=== PATIENT | male | born 1960 | race Caucasian/White ===

== ENCOUNTER 2017-11-07 20:51 | Emergency (ER) | payer OTHER, BC ==
[2017-11-07 21:05] VITALS: BP 131/96
--- NOTE | 2017-11-07 21:24 | EDM.PDOC ---
ED HPI GENERAL MEDICAL PROBLEM - General Chief Complaint: Upper Extremity Injury/Pain Stated Complaint: INJURED RIGHT SHOULDER Time Seen by Provider: 11/07/17 21:14 Source of Information: Reports: Patient History Limitations: Reports: No Limitations - History of Present Illness INITIAL COMMENTS - FREE TEXT/NARRATIVE: Patient is a 57-year-old male who presents to the ED complaining of right shoulder pain. Patient states approx one hour ago while walking on ice and fell landing on his right elbow injuring his right shoulder. Since the fall he's been unable to lift his arm above the right shoulder due to worsening pain to the lateral aspect of the shoulder. There is no swelling, deformity, bruising, wounds present. No sensory/motor deficits distally. No prior injury to the affected shoulder. Denies any head, neck, and lower back pain. Right Shoulder Pain Score (Numeric/FACES): 5 - Related Data Allergies Allergy/AdvReac Type Severity Reaction Status Date / Time No Known Allergies Allergy Verified 11/07/17 20:58 Home Meds: Home Meds Aspirin [Adult Low Dose Aspirin EC] 81 mg PO DAILY 07/17/15 [History] Clopidogrel [Plavix] 75 mg PO DAILY 07/17/15 [History] Metoprolol Tartrate 25 mg PO BID 07/17/15 [History] Calcium Polycarbophil [Fibercon] 625 mg PO BID 08/28/15 [History] Past Medical History - Past Health History Medical/Surgical History: Denies Medical/Surgical History Other Cardiovascular History: no stents---states that he had a 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 Social & Family History - Tobacco Use Smoking Status *Q: Never Smoker Second Hand Smoke Exposure: No - Caffeine Use Caffeine Use: Reports: Soda - Alcohol Use Days Per Week of Alcohol Use: 0 (social, rarely) - Recreational Drug Use Recreational Drug Use: No Review of Systems - Review of Systems Review Of Systems: ROS reveals no pertinent complaints other than HPI. ED EXAM, GENERAL - Physical Exam Exam: See Below Exam Limited By: No Limitations General Appearance: Alert, WD/WN, No Apparent Distress Ears: Hearing Grossly Normal Nose: Normal Inspection Throat/Mouth: Normal Voice, No Airway Compromise Neck: Normal Inspection, Supple, Non-Tender, Full Range of Motion Respiratory/Chest: No Respiratory Distress, No Accessory Muscle Use Cardiovascular: Normal Peripheral Pulses, Regular Rate, Rhythm Peripheral Pulses: 2+: Radial (R) Back Exam: Normal Inspection, Full Range of Motion. No: Paraspinal Tenderness, Vertebral Tenderness Extremities: Normal Inspection, Non-Tender (on palpation. ), Limited Range of Motion (Patient unable to lift his arm above his head. AROM limted with abduction. PROM intact with no limitations. Empty the can test positive. ) Neurological: Alert, Oriented, CN II-XII Intact, Normal Cognition, Normal Gait, No Motor/Sensory Deficits Psychiatric: Normal Affect, Normal Mood Skin Exam: Warm, Dry, Intact, Normal Color Course - Vital Signs Last Recorded V/S: Last Vital Signs Temp 97.2 F 11/07/17 21:02 Pulse 71 11/07/17 21:02 Resp 18 11/07/17 21:02 BP 131/96 H 11/07/17 21:02 Pulse Ox 96 11/07/17 21:02 - Orders/Labs/Meds Orders: Active Orders 24 hr Category Date Time Status Shoulder Comp Rt [CR] Stat Exams 11/07/17 21:18 Ordered - Re-Assessments/Exams Free Text/Narrative Re-Assessment/Exam: Ordered x-ray of the right shoulder. x-ray of the right shoulder did not reveal any acute bony abnormalities. Will discharge patient home with instructions as documented. Presumably believe patient may have strained or partially tore his rotator cuff. Further evaluation by orthopedic surgeon will required if no improvements. Departure - Departure Time of Disposition: 22:23 Disposition: Home, Self-Care 01 Condition: Good Clinical Impression: Partial tear of rotator cuff Qualifiers: Laterality: right Qualified Code(s): M75.111 - Incomplete rotator cuff tear or rupture of right shoulder, not specified as traumatic Right shoulder strain Qualifiers: Encounter type: initial encounter Qualified Code(s): S46.911A - Strain of unspecified muscle, fascia and tendon at shoulder and upper arm level, right arm , initial encounter - Discharge Information Referrals: Capo Melgar MD [Physician] - Forms: ED Department Discharge, ED Return to Work/School Form Additional Instructions: As discussed x-ray of the right shoulder did not reveal any acute bony abnormalities. You have either strained the shoulder or possibly torn portion of the rotator cuff. Treatment at this point is symptomatic care including Tylenol and ibuprofen in alternating fashion for pain. Ice to affected area 4-6 times daily, 20 minutes in duration, do not place ice directly on the skin. Refrain from any activities that cause worsening pain. Follow-up with orthopedic surgeon in 10-14 days if no improvement noted. Return to the ED as needed for any new or worsening symptoms. - My Orders Last 24 Hours: My Active Orders 11/07/17 21:18 Shoulder Comp Rt [CR] Stat - Assessment/Plan Last 24 Hours: My Active Orders 11/07/17 21:18 Shoulder Comp Rt [CR] Stat
--- NOTE | 2017-11-09 07:53 | CR ---
Right shoulder: Three views of the right shoulder were obtained. Comparison: No prior study. Joint space narrowing is noted within the acromioclavicular joint. Glenohumeral joint is within normal limits. No acute fracture, dislocation or other bony abnormality is seen. Impression: 1. Joint space narrowing within the acromioclavicular joint. 2. Right shoulder study is otherwise unremarkable. Diagnostic code #2
== END 2017-11-07 22:35 | disposition home or self-care (01) ==
LOC: JD.ED 20:51
DX: S46.911A Strain of unspecified muscle, fascia and tendon at shoulder and upper arm level, right arm, initial encounter (principal); M75.111 Incomplete rotator cuff tear or rupture of right shoulder, not specified as traumatic; Z79.82 Long term (current) use of aspirin; Z79.899 Other long term (current) drug therapy; W19.XXXA Unspecified fall, initial encounter
CPT/HCPCS: 73030-26-RT; 73030-RT; 99283

== ENCOUNTER 2017-11-28 22:52 | Emergency (ER) | payer BC, OTHER ==
[2017-11-28 23:03] VITALS: BP 141/84
--- NOTE | 2017-11-28 23:49 | EDM.PDOC ---
ED HPI GENERAL MEDICAL PROBLEM - General Chief Complaint: ENT Problem Stated Complaint: SORE EYES Time Seen by Provider: 11/28/17 22:57 Source of Information: Reports: Patient, RN (Kylah) History Limitations: Reports: No Limitations - History of Present Illness INITIAL COMMENTS - FREE TEXT/NARRATIVE: The patient states that he had pain to his left eye on 11/23/2017, then noticed a discharge in his left eye the following day, 11/24/2017. By 11/25/2017 , it had resolved. He then had a burning sensation to his left paranasal sinus area that began on 11/24/2017, but resolved by 11/26/2017. The patient states that there has been "pinkeye" at work, and the patient is concerned that he might have pinkeye. The patient reports that he has had a left upper tooth problem, perhaps an infection, that has extended up to his left paranasal sinus, for the past 8 years. He has an appointment to be seen by his dentist this coming Thursday, 2017. No recent fever. No recent visual changes. The patient's PCP is Chantelle Larsen. - Related Data Allergies Allergy/AdvReac Type Severity Reaction Status Date / Time No Known Allergies Allergy Verified 11/07/17 20:58 Home Meds: Home Meds Aspirin [Adult Low Dose Aspirin EC] 81 mg PO DAILY 07/17/15 [History] Clopidogrel [Plavix] 75 mg PO DAILY 07/17/15 [History] Metoprolol Tartrate 25 mg PO BID 07/17/15 [History] Calcium Polycarbophil [Fibercon] 625 mg PO BID 08/28/15 [History] Past Medical History Cardiovascular History: Reports: ID Other Cardiovascular History: no stents---states that he had a 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 ID Other Neuro History: head injuries in the late . - Past Surgical History Musculoskeletal Surgical History: Reports: Carpal Tunnel Social & Family History - Tobacco Use Smoking Status *Q: Never Smoker Second Hand Smoke Exposure: No - Caffeine Use Caffeine Use: Reports: Coffee, Soda - Alcohol Use Days Per Week of Alcohol Use: 0 (social, rarely) - Recreational Drug Use Recreational Drug Use: No ED ROS GENERAL - Review of Systems Review Of Systems: ROS reveals no pertinent complaints other than HPI. ED EXAM, GENERAL - Physical Exam Exam: See Below Exam Limited By: No Limitations General Appearance: Alert, WD/WN, No Apparent Distress Eye Exam: Bilateral Eye: EOMI, Normal Inspection, PERRL Ears: Normal External Exam, Hearing Grossly Normal Nose: Normal Inspection, Normal Mucosa, No Blood Throat/Mouth: Normal Inspection, Normal Lips, Normal Gums, Normal Oropharynx, Normal Voice, No Airway Compromise, Other (Fillings noted to the upper left molars, however, no tenderness to percussion of any have this teeth, and no gingival swelling or pointing.) Head: Atraumatic, Normocephalic, Other (No facial erythema. The patient reports some numbness sensation to the left paranasal sinus area.). No: Facial Swelling , Facial Tenderness, Sinus Tenderness Neck: Normal Inspection, Full Range of Motion Course - Vital Signs Last Recorded V/S: Last Vital Signs Temp 37.1 C 11/28/17 22:58 Pulse 79 11/28/17 22:58 Resp 16 11/28/17 22:58 BP 141/84 H 11/28/17 22:58 Pulse Ox 98 11/28/17 22:58 - Re-Assessments/Exams Free Text/Narrative Re-Assessment/Exam: 11/28/17 23:42 The patient was concerned that he might have pinkeye. On examination, I see no abnormality with his eye whatsoever. He definitely does not have pinkeye. He is also complaining of some numbness/tingling to his left paranasal sinus area. No tenderness to percussion of the area, and no visible abnormality, such as swelling or erythema. Further, on his examination, I do not see any significant nasal congestion, however, I cannot rule out that a long-standing upper left dental issue may not be causing his symptoms. The patient states that he has a dental appointment this coming 12/01/2017. I recommended that he discuss his symptoms when seen. Departure - Departure Time of Disposition: 23:44 Disposition: Home, Self-Care 01 Condition: Good Clinical Impression: Discomfort of left eye - Discharge Information Referrals: Chantelle Larsen PA [Primary Care Provider] - Additional Instructions: You were seen in the emergency room for a burning sensation to your left eye 2 days ago. On examination, you do not have pinkeye. No abnormality was found, however, your left cheek numbness may be related to your long-standing upper left tooth problem. We recommend that you follow-up with your dentist at your previously scheduled appointment this coming 12/01/2017. If any other problems, please do not hesitate to return to the ER.
== END 2017-11-28 23:51 | disposition home or self-care (01) ==
LOC: JD.ED 22:52
DX: H57.12 Ocular pain, left eye (principal); Z79.82 Long term (current) use of aspirin; Z79.899 Other long term (current) drug therapy
CPT/HCPCS: 99282; 99283

== ENCOUNTER 2018-02-10 06:37 | Day surgery (SDC) | payer OTHER, BC ==
[~2018-02-10 06:37] MED LIST: EPINEPHrine 1 MG/ML SDV ONE; Lactated Ringers 1,000 ML IV SCH; Lidocaine 1%/Sod Bicarbonate in NS 8.4% 1 ML Syringe IDERM PRN; Ropivacaine 0.5% 5 MG/ML 30 ML SDV ONE; Sodium Chloride 0.9% 10 ML Syringe FLUSH PRN
[2018-02-10] MEDS ORDERED: Bupivacaine 0.25% 30 ML SDV ONE (07:16)
--- NOTE | 2018-02-10 07:25 | PCM.PREANE ---
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, was on blood thinner for a year then discontinued, still takes aspirin thought last time was a week ago, CAD, HLD) Gastrointestinal: No Symptoms Neurological: No Symptoms Other: Reports: Easy Bruising, Depression - Physical Assessment NPO Status Date: 02/09/18 NPO Status Time: 22:00 O2 Sat by Pulse Oximetry: 96 Respiratory Rate: 16 Vital Signs: Last Vital Signs Temp 36.3 C 02/10/18 06:45 Pulse 64 02/10/18 06:45 Resp 16 02/10/18 06:45 BP 127/76 02/10/18 06:45 Pulse Ox 96 02/10/18 06:45 Height: 1.68 m Weight: 94.347 kg ASA Class: 2 Mental Status: Alert & Oriented x3 Airway Class: Mallampati = 1 Dentition: Reports: Normal Dentition Thyro-Mental Finger Breadths: 3 Mouth Opening Finger Breadths: 3 ROM/Head Extension: Full Lungs: Clear to Auscultation, Normal Respiratory Effort Cardiovascular: Regular Rate, Regular Rhythm - Allergies Allergies/Adverse Reactions: Allergies Allergy/AdvReac Type Severity Reaction Status Date / Time naproxen [From Aleve] Allergy Burning Verified 02/09/18 14:54 - Blood Blood Available: No Product(s) Available: None - Anesthesia Plan Beta Mel: Metoprolol Med Last Dose Date: 02/10/18 Med Last Dose Time: 06:15 - Acknowledgements Anesthesia Type Planned: General Anesthesia, Regional Block (Right ISNB) Pt an Appropriate Candidate for the Planned Anesthesia: Yes Alternatives and Risks of Anesthesia Discussed w Pt/Guardian: Yes Pt/Guardian Understands and Agrees with Anesthesia Plan: Yes PreAnesthesia Questionnaire - Past Health History Medical/Surgical History: Denies Medical/Surgical History HEENT History: Reports: Impaired Vision, Sinusitis, Other (See Below) Other HEENT History: blind in left eye Cardiovascular History: Reports: CAD, High Cholesterol, Hypertension, RI Other Cardiovascular History: no stents---states that he had a 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 RI Respiratory History: Reports: None Gastrointestinal History: Reports: None Genitourinary History: Reports: None [employer] History: Reports: None Other Musculoskeletal History: facial pain, right rotator cuff tear Neurological History: Reports: Headaches, Chronic Other Neuro History: head injuries in the late 90s, dizziness Psychiatric History: Reports: Depression Endocrine/Metabolic History: Reports: None Hematologic History: Reports: None Immunologic History: Reports: None Oncologic (Cancer) History: Reports: None Dermatologic History: Reports: None - Past Surgical History Head Surgeries/Procedures: Reports: None HEENT Surgical History: Reports: Oral Surgery Cardiovascular Surgical History: Reports: Other (See Below) Other Cardiovascular Surgeries/Procedures: femoral artery bypass Respiratory Surgical History: Reports: None GI Surgical History: Reports: Colonoscopy Female Surgical History: Reports: None Male Surgical History: Reports: None Endocrine Surgical History: Reports: None Neurological Surgical History: Reports: None Musculoskeletal Surgical History: Reports: Carpal Tunnel Oncologic Surgical History: Reports: None Dermatological Surgical History: Reports: None - SUBSTANCE USE Smoking Status *Q: Never Smoker Second Hand Smoke Exposure: No Days Per Week of Alcohol Use: 0 Recreational Drug Use History: No - HOME MEDS Home Medications: Home Meds Aspirin [Adult Low Dose Aspirin EC] 81 mg PO DAILY 07/17/15 [History] Metoprolol Tartrate 12.5 mg PO BID 07/17/15 [History] Calcium Polycarbophil [Fibercon] 2 tab PO DAILY 08/28/15 [History] Mirtazapine 15 mg PO BEDTIME 02/09/18 [History] atorvaSTATin Calcium [Atorvastatin Calcium] 20 mg PO BEDTIME 02/09/18 [History] Acetaminophen/HYDROcodone [Beebe 325-5 MG] 1 - 2 tab PO Q6H PRN #40 tablet 02/10 [Rx] Cyclobenzaprine [Flexeril] 10 mg PO Q8H PRN #40 tab 02/10/18 [Rx] - CURRENT (IN HOUSE) MEDS Current Meds: Current Medications Epinephrine HCl (Adrenalin) 3 mg .XX ONETIME ONE Stop: 02/10/18 09:46 Lactated Ringer's (Ringers, Lactated) 1,000 mls @ 125 mls/hr IV ASDIRECTED SANGITA Last Admin: 02/10/18 06:55 Dose: 125 mls/hr Lidocaine/Sodium Bicarbonate (Buffered Lidocaine 1% In Ns 8.4%) 0.25 ml IDERM ONETIME PRN PRN Reason: Prior to IV Start Last Admin: 02/10/18 06:55 Dose: 0.25 ml Sodium Chloride (Saline Flush) 10 ml FLUSH ASDIRECTED PRN PRN Reason: Keep Vein Open Discontinued Medications Epinephrine HCl (Adrenalin) Confirm Administered Dose 1 mg .ROUTE .STK-MED ONE Stop: 02/10/18 06:04 Fentanyl (Sublimaze) Confirm Administered Dose 100 mcg .ROUTE .STK-MED ONE Stop: 02/10/18 07:29 Lidocaine HCl (Xylocaine-Mpf 1%) Confirm Administered Dose 2 mls @ as directed .ROUTE .STK-MED ONE Stop: 02/10/18 07:30 Midazolam HCl (Versed 1 Mg/Ml) Confirm Administered Dose 2 mg .ROUTE .STK-MED ONE Stop: 02/10/18 07:29 Ropivacaine (Naropin 0.5%) Confirm Administered Dose 30 ml .ROUTE .STK-MED ONE Stop: 02/10/18 06:04
[2018-02-10] MEDS ORDERED: fentaNYL 100 MCG/2 ML SDV ONE (07:28)
[2018-02-10] MEDS ORDERED: Midazolam 1 MG/ML 2 ML SDV ONE (07:28)
[2018-02-10] MEDS ORDERED: Lidocaine 1% 2 ML ONE (07:29)
[2018-02-10] MEDS ORDERED: EPINEPHrine 1 MG/ML 30 ML MDV ONE ×2 (07:32→09:45)
[2018-02-10] MEDS ORDERED: Propofol 200 MG/20 ML SDV ONE (08:17)
[2018-02-10] MEDS ORDERED: Ondansetron 4 MG/2 ML SDV ONE (08:39)
[2018-02-10] MEDS ORDERED: Dexamethasone 4 MG/ML 5 ML MDV ONE (08:39)
[2018-02-10] MEDS ORDERED: ceFAZolin 1 GM Vial ONE (08:45)
--- NOTE | 2018-02-10 09:55 | PCM.POSTAN ---
POST ANESTHESIA ASSESSMENT - MENTAL STATUS Mental Status: Alert, Oriented - VITAL SIGNS Pulse Rate: 75 SaO2: 95 Resp Rate: 12 Blood Pressure: 133/86 Temperature: 36.6 C - RESPIRATORY Respiratory Status: Respiratory Rate WNL, Airway Patent, O2 Saturation Stable, Supplemental Oxygen - CARDIOVASCULAR CV Status: Pulse Rate WNL, Blood Pressure Stable - GASTROINTESTINAL GI Status: No Symptoms - PAIN Pain Score: 0 - POST OP HYDRATION Hydration Status: Adequate & Stable
[2018-02-10] MEDS ORDERED: Ondansetron 4 MG/2 ML SDV IVPUSH PRN (09:56)
[2018-02-10] MEDS ORDERED: diphenhydrAMINE 50 MG/ML SDV IVPUSH PRN (09:56)
[2018-02-10] MEDS ORDERED: Meperidine PF 50 MG/ML Syringe IVPUSH PRN (09:56)
[2018-02-10] MEDS ORDERED: fentaNYL 100 MCG/2 ML SDV IVPUSH PRN (09:56)
--- NOTE | 2018-02-10 10:15 | PCM.SN ---
- Free Text/Narrative Note: Right interscalene nerve block note Date: 02/04/2018 Time Out: 742 Start: 742 Stop: 752 Surgical Procedure: Right shoulder video arthroscopy with RCR, RADHA Diagnosis: Right rotator cuff tear Current Procedure: Right interscalene block under US guidance for postoperative pain control Patient chart reviewed, risk/benefits discussed with patient, consent obtained. Patient positioned supine, monitors/alarms on, oxygen placed via nasal cannula at 2 LPM. IV sedation administered: Versed 1mg IV Fentanyl 100 mcg IV Right shoulder prepped with chloraprep x1. Sterile drapes placed with aseptic technique. Under US guidance, right subclavian artery visualized along with the brachial plexus. Plexus followed cephalad up to C6 cricoid level, and area localized with 2mls of 1% lidocaine. 22gauge 2 inch stimiplex needle inserted under US and guided to brachial plexus C5-C6 trunks with 0.44mV with stimulation of biceps noted. Stimulation abolished at 0.2mVs. 1ml of Normal Saline injected with loss of stimulation up to 0.7mA. Incremental injection of 5mls with negative aspiration prior to each injection of 0.5% ropivacaine with 1:200,000 epinephrine. Total volume=30mls. Refer to nurses notes for vital signs. Luis Claudio CRNA
--- NOTE | 2018-02-10 12:17 | PCM48HPAN ---
Post Anesthesia Note - EVALUATION WITHIN 48HRS OF ANESTHETIC Vital Signs in Normal Range: Yes Patient Participated in Evaluation: Yes Respiratory Function Stable: Yes Airway Patent: Yes Cardiovascular Function Stable: Yes Hydration Status Stable: Yes Pain Control Satisfactory: Yes Nausea and Vomiting Control Satisfactory: Yes Mental Status Recovered: Yes Pulse Rate: 75 Resp Rate: 17 Temperature: 36.6 C Blood Pressure: 133/86
[2018-02-10 12:58] VITALS: BP 116/74
--- NOTE | 2018-02-18 22:28 | PCM.OPNOTE ---
- General Post-Op/Procedure Note Date of Surgery/Procedure: 02/10/18 Operative Procedure(s): right shoulder video arthroscopy with rotator cuff repair subacromial decompression and limited debridement Pre Op Diagnosis: right shoulder rotator cuff tear with impingement Post-Op Diagnosis: Same Anesthesia Technique: General ET Tube, Regional Block Primary Surgeon: Capo Melgar Anesthesia Provider: Luis Claudio Rn Document Improvement: Marci Gastelum EBL in mLs: 5 Complications: None Condition: Good
--- NOTE | 2018-02-19 09:19 | OR ---
DATE OF OPERATION: 02/10/2018 SURGEON: Capo Melgar MD OPERATION PERFORMED: Right shoulder video arthroscopy, rotator cuff repair, subacromial decompression, and limited debridement. PREOPERATIVE DIAGNOSIS: Right shoulder rotator cuff tear with impingement. POSTOPERATIVE DIAGNOSIS: Right shoulder rotator cuff tear with impingement. ANESTHESIA: General endotracheal intubation with regional interscalene block. ANESTHESIA PROVIDER: Luis Claudio. RELIABILITY TECHNICIANS: Marci Gastelum PA-C. ESTIMATED BLOOD LOSS: 5 mL. COMPLICATIONS: None. CONDITION: Stable. DESCRIPTION OF PROCEDURE: The patient was identified in the preop holding area where proper site was marked and identified. The patient was taken back to the OR after adequate anesthesia. The patient was placed in the lazy left lateral decubitus position. A wedge was placed posteriorly. All bony prominences were well padded. The patient's right shoulder was then sterilely prepped and draped in the usual sterile fashion. OR time-out was performed. The patient received 2 g IV Ancef. At this time, the right upper extremity had 15 pounds of traction applied. Standard posterior incision was made and the scope trocar was introduced in glenohumeral joint. At this time, the subscapularis tendon was noted to be intact, biceps tendon was intact, no signs of fraying. With use of a spinal needle anterior portal was then created. There were no signs of chondromalacia. There was noted to be a significant full-thickness tear of the supraspinatus going back into the infraspinatus margin. At this time, attention was turned to the subacromial space. At this time, the patient was noted to have significant synovitis and a lateral portal was created. A partial limited debridement was then done of the subacromial space for better visualization. At this time, a good bony bleeding bed was then created using a full radius resector and cautery making sure to have a good bed for the rotator cuff repair. At this time, it was decided that 2 anchors would be used medially and laterally. At this time, 2 4.75 mm Arthrex SwiveLock anchors were then placed medially with 2 limbs of FiberTape, 2 limbs of FiberWire. Starting anteriorly a FiberTape was then placed, 2 limbs of FiberWire, another FiberTape, and then off the other anchor posteriorly. This was then repeated. The 4 limbs of FiberWire were then tied the 2 anterior together and then the 2 posterior for medial row repair. 1 suture limb was then cut from each of those and then 2 lateral anchors were then placed, 1 anterior, 1 posterior and all the suture limbs were then brought out laterally and were tightened for a good double row watertight repair with 4 Arthrex SwiveLock anchors. At this time, the patient was noted to have adequate watertight repair of the tear at this time. At this time, the patient was noted to have a type II/III acromion and was downsloping anteriorly. At this time, acromioplasty was performed along with a subacromial decompression bringing back the border of the acromion even with the posterior border making it a type I acromion. At this time, excess filling was drained from the shoulder. A 3-0 nylon simple suture was used for closure of the skin. The patient was placed in sterile soft dressing and a pillow sling, and sent to PACU in stable condition. MMODAL /[id number]
== END 2018-02-10 12:25 | disposition home or self-care (01) ==
LOC: JD.SDS 06:37
PROVIDERS: ATTEND Orthopaedic Surgery
DX: M75.101 Unspecified rotator cuff tear or rupture of right shoulder, not specified as traumatic (principal); M75.41 Impingement syndrome of right shoulder; I25.10 Atherosclerotic heart disease of native coronary artery without angina pectoris; F32.9 Major depressive disorder, single episode, unspecified; E78.5 Hyperlipidemia, unspecified; I10 Essential (primary) hypertension; G89.29 Other chronic pain; R51 Headache; Z88.8 Allergy status to other drugs, medicaments and biological substances; Z79.899 Other long term (current) drug therapy
CPT/HCPCS: 29822; 29826; 64415; C1713; J0171; J0690; J1100; J2250; J2405; J2795; J3010; J3490; J7120; 01610; J2704